=== PATIENT | female | born 1995 | race African-American/Black ===

== ENCOUNTER 2016-09-12 06:39 | Emergency (ER) | payer MEDICAID ==
[2016-09-12 07:34] LABS: BASOPHILS 0.1 % (0-2); EOSINOPHILS 1.4 % (0-7); HEMATOCRIT 38.1 % (36.0-48.0); HEMOGLOBIN 12.4 g/dL (12-16); IMMATURE GRANULOCYTES 0.2 % (0-5); LYMPHOCYTES 18.6 % (15-50); MCH 27.8 pg (26.0-34.0); MCHC 32.5 g/dL (31.0-37.0); MCV 85.4 fL (80.0-100.0); MEAN PLATELET VOLUME 12.2 fL (7.4-10.4); MONOCYTES 5.5 % (2-11); NEUTROPHILS 74.2 % (40-80); PLATELET COUNT 228 10x3/uL (130-400); RBC 4.46 10x6/uL (4.00-5.40); RDW 15.1 % (11.5-14.5); WBC 8.9 10x3/uL (4.8-10.8)
[2016-09-12 07:43] LABS: HCG SERUM NEGATIVE (NEGATIVE)
[2016-09-12 09:20] LABS: ALKALINE PHOSPHATASE 100 U/L (46-116); ALT (SGPT) 20 U/L (10-68); BILIRUBIN - TOTAL 0.33 mg/dL (0.2-1.3); CALC OSMOLALITY 283 mosm/kg (275-300); CALCIUM 9.5 mg/dL (8.5-10.1); CARBON DIOXIDE 24.8 mmol/L (21.0-32.0); CHLORIDE - SERUM 105 mmol/L (98-107); GLUCOSE 110 mg/dL (74-106); MAGNESIUM - SERUM 2.2 mg/dL (1.8-2.4); POTASSIUM - SERUM 3.8 mmol/L (3.5-5.1); PROTEIN - SERUM 8.3 g/dL (6.4-8.2); SODIUM 142 mmol/L (136-145); UREA NITROGEN 13 mg/dL (7-18); eGFR NON AFRICAN AMERICAN 75 mL/min (90-120)
[2016-09-12 09:47] LABS: APPEARANCE CLEAR (CLEAR); BILIRUBIN NEGATIVE (NEGATIVE); COLOR YELLOW (YELLOW); GLUCOSE NEGATIVE (NEGATIVE); KETONE NEGATIVE (NEGATIVE); LEUKOCYTE ESTERASE 1+ (NEGATIVE); NITRITE NEGATIVE (NEGATIVE); PROTEIN TRACE mg/dL (NEGATIVE); UROBILINOGEN NORMAL (NORMAL)
[2016-09-12 09:48] LABS: BACTERIA MANY /hpf (NONE SEEN); EPITHELIAL CELLS 0-5 /hpf (0-5); MUCUS <1+ /lpf (NONE SEEN)
== END 2016-09-12 10:30 | disposition home or self-care (01) ==
LOC: D.ER 06:39
PROVIDERS: Emergency Medicine
DX: R11.10 Vomiting, unspecified (principal); R10.9 Unspecified abdominal pain

== ENCOUNTER 2016-12-04 07:54 | Emergency (ER) | payer MEDICAID | END 2016-12-04 08:45 | disposition home or self-care (01) | LOC: D.ER 07:54 | DX: A64 Unspecified sexually transmitted disease (principal); F17.200 Nicotine dependence, unspecified, uncomplicated ==

== ENCOUNTER 2017-02-10 08:54 | Emergency (ER) | payer MEDICAID ==
[2017-02-10 10:01] LABS: HCG URINE NEGATIVE (NEGATIVE)
[2017-02-10 10:09] LABS: APPEARANCE HAZY (CLEAR); COLOR DK YELLOW (YELLOW)
[2017-02-10 10:10] LABS: BACTERIA FEW /hpf (NONE SEEN); BILIRUBIN NEGATIVE (NEGATIVE); EPITHELIAL CELLS 0-5 /hpf (0-5); GLUCOSE NEGATIVE (NEGATIVE); KETONE MODERATE mg/dL (NEGATIVE); MUCUS >1+ /lpf (NONE SEEN); NITRITE NEGATIVE (NEGATIVE); PROTEIN NEGATIVE (NEGATIVE); SPECIFIC GRAVITY 1.015 (1.005-1.020); WHITE CELLS - URINE OCC /hpf (0-5)
== END 2017-02-10 10:37 | disposition left against medical advice (07) ==
LOC: D.ER 08:54
PROVIDERS: Family Medicine
DX: S20.219A Contusion of unspecified front wall of thorax, initial encounter (principal); Y04.2XXA Assault by strike against or bumped into by another person, initial encounter; Y93.89 Activity, other specified; Y92.029 Unspecified place in mobile home as the place of occurrence of the external cause; L01.00 Impetigo, unspecified

== ENCOUNTER 2017-02-12 07:53 | Emergency (ER) | payer MEDICAID | END 2017-02-12 10:20 | disposition home or self-care (01) | LOC: D.ER 07:53 | DX: R11.10 Vomiting, unspecified (principal); F41.9 Anxiety disorder, unspecified; L01.00 Impetigo, unspecified; F17.200 Nicotine dependence, unspecified, uncomplicated ==

== ENCOUNTER 2017-03-17 04:02 | Emergency (ER) | payer MEDICAID ==
[2017-03-17 04:35] LABS: BASOPHILS 0 % (0-2); EOSINOPHILS 1.3 % (0-7); HEMATOCRIT 35.9 % (36.0-48.0); IMMATURE GRANULOCYTES 0.2 % (0-5); LYMPHOCYTES 23.4 % (15-50); MCH 29.6 pg (26.0-34.0); MCHC 33.4 g/dL (31.0-37.0); MCV 88.4 fL (80.0-100.0); MONOCYTES 11.1 % (2-11); PLATELET COUNT 230 10x3/uL (130-400); RBC 4.06 10x6/uL (4.00-5.40); RDW 14.7 % (11.5-14.5); WBC 6.2 10x3/uL (4.8-10.8)
[2017-03-17 04:43] LABS: CALC OSMOLALITY 275 mosm/kg (275-300); CALCIUM 8.5 mg/dL (8.5-10.1); CARBON DIOXIDE 25.1 mmol/L (21.0-32.0); CHLORIDE - SERUM 103 mmol/L (98-107); CREATININE - SERUM 0.8 mg/dL (0.6-1.3); GLUCOSE 90 mg/dL (74-106); MAGNESIUM - SERUM 1.7 mg/dL (1.8-2.4); POTASSIUM - SERUM 3.4 mmol/L (3.5-5.1); SODIUM 139 mmol/L (136-145); UREA NITROGEN 8 mg/dL (7-18); eGFR NON AFRICAN AMERICAN > 90 mL/min (90-120)
[2017-03-17 04:45] LABS: HCG SERUM POSITIVE (NEGATIVE)
== END 2017-03-17 05:00 | disposition home or self-care (01) ==
LOC: D.ER 04:02
PROVIDERS: Emergency Medicine
DX: R56.9 Unspecified convulsions (principal); Z33.1 Pregnant state, incidental; F17.200 Nicotine dependence, unspecified, uncomplicated

== ENCOUNTER 2017-03-19 04:58 | Emergency (ER) | payer MEDICAID ==
[2017-03-20 11:59] VITALS: BMI 31.9
[2017-03-20] MEDS ORDERED: LEVSIN/ANASP0.125 MG PO (13:57)
[2017-03-20] MEDS ORDERED: PHENERGAN25 M1 PO ×2 (13:59→14:49)
[2017-03-20] MEDS ORDERED: KEFLEX500 MG PO (14:00)
[2017-03-20] MEDS ORDERED: TYLENOL W/CODEI1 TAB PO (14:01)
[2017-03-20] MEDS ORDERED: MOBIC7.5 MG PO (14:03)
[2017-03-20] MEDS ORDERED: BACTRIM DS TABL1 TAB PO (14:04)
[2017-03-20] MEDS ORDERED: ZOFRAN4 MG PO (14:05)
[2017-03-20] MEDS ORDERED: MACROBID100 MG PO (14:07)
[2017-03-20] MEDS ORDERED: TYLENOL PM1 TAB PO ×2 (14:08→14:50)
[2017-03-20] MEDS ORDERED: PROAIR HFA8.5 GM INH (14:10)
[2017-03-20] MEDS ORDERED: KEPPRA500 MG PO ×2 (14:12→14:48)
[2017-03-20] MEDS ORDERED: PRENATAL COMPLE1 TAB PO (14:51)
[2017-03-20] MEDS ORDERED: FOLIC ACID1 MG PO (14:51)
== END 2017-03-19 06:35 | disposition home or self-care (01) ==
LOC: D.ER 04:58
DX: J20.9 Acute bronchitis, unspecified (principal); F17.200 Nicotine dependence, unspecified, uncomplicated

== ENCOUNTER 2017-03-19 19:20 | Emergency (ER) | payer MEDICAID ==
[2017-03-19 23:00] LABS: BASOPHILS 0 % (0-2); EOSINOPHILS 0 % (0-7); HEMATOCRIT 34.3 % (36.0-48.0); HEMOGLOBIN 11.7 g/dL (12-16); IMMATURE GRANULOCYTES 0.1 % (0-5); LYMPHOCYTES 10.1 % (15-50); MCH 29.5 pg (26.0-34.0); MCHC 34.1 g/dL (31.0-37.0); MCV 86.6 fL (80.0-100.0); MEAN PLATELET VOLUME 11.8 fL (7.4-10.4); MONOCYTES 4.9 % (2-11); NEUTROPHILS 84.9 % (40-80); PLATELET COUNT 251 10x3/uL (130-400); RBC 3.96 10x6/uL (4.00-5.40); RDW 14.6 % (11.5-14.5)
[2017-03-19 23:18] LABS: ALKALINE PHOSPHATASE 73 U/L (46-116); ALT (SGPT) 29 U/L (10-68); BILIRUBIN - TOTAL 0.38 mg/dL (0.2-1.3); CALC OSMOLALITY 273 mosm/kg (275-300); CALCIUM 9.1 mg/dL (8.5-10.1); CARBON DIOXIDE 20.3 mmol/L (21.0-32.0); CHLORIDE - SERUM 104 mmol/L (98-107); CREATININE - SERUM 0.8 mg/dL (0.6-1.3); GLUCOSE 124 mg/dL (74-106); POTASSIUM - SERUM 3.6 mmol/L (3.5-5.1); PROTEIN - SERUM 8.5 g/dL (6.4-8.2); SODIUM 137 mmol/L (136-145); UREA NITROGEN 11 mg/dL (7-18); eGFR NON AFRICAN AMERICAN > 90 mL/min (90-120)
[2017-03-19 23:40] LABS: HCG - QUANTITATIVE (MATERNAL) 2713 mIU/mL
[2017-03-20] LABS: APPEARANCE CLEAR (CLEAR); COLOR YELLOW (YELLOW); GLUCOSE NEGATIVE (NEGATIVE); NITRITE NEGATIVE (NEGATIVE); PROTEIN NEGATIVE (NEGATIVE); SPECIFIC GRAVITY 1.015 (1.005-1.020)
[2017-03-20 00:01] LABS: BILIRUBIN NEGATIVE (NEGATIVE); KETONE MODERATE mg/dL (NEGATIVE); UROBILINOGEN NORMAL (NORMAL)
[2017-03-20 11:59] VITALS: BMI 31.9
[2017-03-20] MEDS ORDERED: LEVSIN/ANASP0.125 MG PO (13:57)
[2017-03-20] MEDS ORDERED: PHENERGAN25 M1 PO ×2 (13:59→14:49)
[2017-03-20] MEDS ORDERED: KEFLEX500 MG PO (14:00)
[2017-03-20] MEDS ORDERED: TYLENOL W/CODEI1 TAB PO (14:01)
[2017-03-20] MEDS ORDERED: MOBIC7.5 MG PO (14:03)
[2017-03-20] MEDS ORDERED: BACTRIM DS TABL1 TAB PO (14:04)
[2017-03-20] MEDS ORDERED: ZOFRAN4 MG PO (14:05)
[2017-03-20] MEDS ORDERED: MACROBID100 MG PO (14:07)
[2017-03-20] MEDS ORDERED: TYLENOL PM1 TAB PO ×2 (14:08→14:50)
[2017-03-20] MEDS ORDERED: PROAIR HFA8.5 GM INH (14:10)
[2017-03-20] MEDS ORDERED: KEPPRA500 MG PO ×2 (14:12→14:48)
[2017-03-20] MEDS ORDERED: PRENATAL COMPLE1 TAB PO (14:51)
[2017-03-20] MEDS ORDERED: FOLIC ACID1 MG PO (14:51)
== END 2017-03-20 01:40 | disposition home or self-care (01) ==
LOC: D.ER 19:20
PROVIDERS: Physician Assistant
DX: K52.9 Noninfective gastroenteritis and colitis, unspecified (principal); R10.31 Right lower quadrant pain; R10.32 Left lower quadrant pain

== ENCOUNTER 2017-03-20 08:12 | Observation (INO) | payer MEDICAID ==
[~2017-03-20] VITALS: Ht 160 cm; Wt 81.6 kg
--- NOTE | ~2017-03-20 | SS ---
PATIENT:EARNESTINE GREGG :89 MEDICAL RECORD: [id number] DISCHARGE SUMMARY ADMISSION DATE: 03/20/17 DISCHARGE DATE: 03/20/17 Admission to the Emergency Room 03/20/2017 and labor and delivery same day. This patient is a 21-year-old female at approximately 5 weeks' gestational age, who presented to the Emergency Room with nausea and vomiting. She had been discharged home at 1:30 a.m. from the Emergency Room same day and presented again at 8:00 a.m. The patient also has a seizure disorder. Her workup included CBC, UA revealing large ketones and also positive for THC. She was treated with IV fluids, vital signs remained stable. She was afebrile. UA revealed large ketones. She was treated also with GI cocktail and observation on labor and delivery. The patient's symptoms improved and she was discharged home at approximately 8:00 p.m. on medications including cephalexin, promethazine, levetiracetam, ProAir inhaler, vitamins, folic acid. To return p.r.n. on exacerbation of her symptoms and to seek care. TRANSINT:[id number] Voice Confirmation ID: [id number] DOCUMENT ID: [id number] GENARO JACOBO MD CC: [id number] DICTATION DATE: 04/20/171651 GROOVING MACHINE OPERATOR: 04/21/17 1058 DIS IN 03/20/17 [facility] [address] [place] [address]
[2017-03-20 08:37] LABS: APPEARANCE HAZY (CLEAR); BILIRUBIN NEGATIVE (NEGATIVE); COLOR YELLOW (YELLOW); GLUCOSE NEGATIVE (NEGATIVE); KETONE LARGE mg/dL (NEGATIVE); NITRITE NEGATIVE (NEGATIVE); PROTEIN TRACE mg/dL (NEGATIVE); SPECIFIC GRAVITY 1.015 (1.005-1.020); UROBILINOGEN NORMAL (NORMAL)
[2017-03-20 08:38] LABS: WHITE CELLS - URINE 0-5 /hpf (0-5)
[2017-03-20 08:39] LABS: BACTERIA FEW /hpf (NONE SEEN); EPITHELIAL CELLS 25-50 /hpf (0-5)
[2017-03-20 08:45] LABS: UDS - AMPHET NEGATIVE QUAL (NEGATIVE); UDS - BARB NEGATIVE QUAL (NEGATIVE); UDS - BENZO NEGATIVE QUAL (NEGATIVE); UDS - COCAINE NEGATIVE QUAL (NEGATIVE); UDS - OPIATE NEGATIVE QUAL (NEGATIVE); UDS - PCP NEGATIVE QUAL (NEGATIVE); UDS - THC POSITIVE QUAL (NEGATIVE)
[2017-03-20 09:26] LABS: BASOPHILS 0.1 % (0-2); EOSINOPHILS 0 % (0-7); HEMATOCRIT 36.1 % (36.0-48.0); HEMOGLOBIN 12.1 g/dL (12-16); IMMATURE GRANULOCYTES 0.3 % (0-5); LYMPHOCYTES 11.1 % (15-50); MCH 28.9 pg (26.0-34.0); MCHC 33.5 g/dL (31.0-37.0); MCV 86.2 fL (80.0-100.0); MEAN PLATELET VOLUME 11.7 fL (7.4-10.4); MONOCYTES 8.6 % (2-11); NEUTROPHILS 79.9 % (40-80); PLATELET COUNT 291 10x3/uL (130-400); RBC 4.19 10x6/uL (4.00-5.40); RDW 14.9 % (11.5-14.5); WBC 11.8 10x3/uL (4.8-10.8)
[2017-03-20 09:27] LABS: CALC OSMOLALITY 277 mosm/kg (275-300); CALCIUM 9.1 mg/dL (8.5-10.1); CHLORIDE - SERUM 103 mmol/L (98-107); CREATININE - SERUM 0.9 mg/dL (0.6-1.3); GLUCOSE 116 mg/dL (74-106); SODIUM 139 mmol/L (136-145); UREA NITROGEN 10 mg/dL (7-18); eGFR NON AFRICAN AMERICAN 84 mL/min (90-120)
[2017-03-20 09:57] LABS: HCG URINE POSITIVE (NEGATIVE)
--- NOTE | 2017-03-20 11:30 | NUR ---
RECEIVED 21 YR OLD G 2 P1 L0 FROM ER VIA WHEELCHAIR FOR ADMISSION SECONDARY TO N&V X 2 DAYS. ALERT AND ORIENTED. AMBULATED TO BED WITHOUT DIFFICULTY. INITIALLY CALM BUT THEN START GRIMACING AND SLIGHT CRY. ENCOURAGED TO DEEP BREATH AND TALKED THROUGH RELAXATION METHOD. GRIMACING, CRYING STOPPED. EMESIS BAG GIVEN SECONDARY TO NAUSEA. SIDE RAILS UP X 2, CALL LIGHT PLACED IN REACH. FOB IN ROOM. 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 HX OF SEIZURES, NOT CURRENTLY TAKING MEDICATION.
--- NOTE | 2017-03-20 11:34 | NUR ---
QUICK START COMPLETED EXCEPT FOR MEDICATION RECONCILIATION. WAITING ON FOB TO RETURN. VS'S OBTAINED.
--- NOTE | 2017-03-20 11:45 | NUR ---
PT NOTIFIED OF PLANS FOR GI COCTAIL AND EXPLAINED PURPOSE OF MEDICATION TO RELIEVE BURNING SENSATION. VERBALIZED UNDERSTANDING. PER PT MOTHER, PT IS NOT SCHIZOPHRENIC STATED BY PATIENT IN HISTORY. SIDE RAILS UP X 2, CALL LIGHT IN REACH.
--- NOTE | 2017-03-20 11:50 | NUR ---
DR JACOBO NOTIFIED OF PT ARRIVAL TO L&D AND NEW ORDERS OBTAINED. INFORMED MD THAT FOB HAS GONE HOME TO OBTAIN PT MEDICATIONS. TO CALL MD WHEN HOME MEDICATION INFORMATION IS OBTAINED.
--- NOTE | 2017-03-20 11:50 | NUR ---
ADMISSION ASSESSMENT COMPLETED. CASE MANAGEMENT CONSULT SECONDARY TO PATIENT DESIRE TO TALK TO BOOKMOBILE LIBRARIAN ABOUT THE BIBLE TEACHINGS.
[2017-03-20 11:59] VITALS: BP 117/80; Ht 160 cm; Wt 81.6 kg
--- NOTE | 2017-03-20 12:18 | NUR ---
L&D OB HISTORY COMPLETED. QUESTIONABLE G 2 P1 L0. UNSURE LAST BETWEEN 6-7 MONTHS PER PATIENT.
--- NOTE | 2017-03-20 12:40 | NUR ---
C/O INCREASED ABDOMINAL BURNING CRYING, THREE EPISODE OFF VOMITING CLEAR YELLOW FLUID SINCE ARRIVAL. VOIDED 100 DARK YELLOW URINE X 1. ON WAY OUT OF ROOM PT STATES HER HEAD WAS HURTING TOO. SAYS SHE HAD A SEIZURE IN ER THE MORNING AND HIT HER HEAD ON THE FLOOR. FAMILY MEMBERS IN ROOM CONCURRED WITH PT. SHE IS WORRIED HER HEAD WAS NOT EVALUATED. PER ER REPORT PT RECEIVED NORCO FOR C/O HEAD PAIN. DR JACOBO NOTIFIED OF ABOVE. ORDERS RECEIVED FOR GI COCKTAIL. ALSO REQUESTED UDS IF NOT DONE ALREADY.
--- NOTE | 2017-03-20 12:50 | NUR ---
IV RESTARTED IN RIGHT HAND WITH 20 G CATH WITHOUT DIFFICULTY. 1000 ML NS WITH 40 MILLIEQUIVALANTS POTASSIUM CHLORIDE PLACED ON ALARIS PUMP AT 125 ML/HR. GI COCTAIL GIVEN. STATES "I DON'T FEEL ANYMORE BURNING" AFTER SWALLOWING MEDICATION. EYES CLOSED AND CALM DEMENOR DURING IV START. SIDE RAILS UP X 2. VISITOR X 1 IN ROOM.
--- NOTE | 2017-03-20 12:50 | NUR ---
TO ROOM NO LONGER CRYING OR MOANING. SITTING UP IN BED WATCHING TV. C/O BURNING WHEN SALINE LOCK FLUSHED IN LEFT ARE. WILL RESTART IV BEFORE STARTING POTASSIUM CHLORIDE IV SOLUTION.
--- NOTE | 2017-03-20 13:36 | NUR ---
SOLA RETURNED WITH PATIENT MEDICATIONS. HE STATES "I'M BIPOLAR SO DON'T MIND ME IF I AM UP AND WALKING IN ROOM, IN AND OUT OF DOOR. SHE'S AND UPSET WITH ME NOW BECAUSE I TOOK TOO LONG."
--- NOTE | 2017-03-20 13:50 | NUR ---
TALKING ON PHONE. SAYS SHE WASNT HAVING ANY PAIN UNTIL HER FATHER WOKE HER UP. NOW WITH 5/10 CRAMPING PAIN, SAYS THE BURNING IS "A LITTLE BETTER THAN IT WAS".
[2017-03-20] MEDS ORDERED: LEVSIN/ANASP0.125 MG PO (13:57)
[2017-03-20] MEDS ORDERED: PHENERGAN25 M1 PO ×2 (13:59→14:49)
[2017-03-20] MEDS ORDERED: KEFLEX500 MG PO (14:00)
[2017-03-20] MEDS ORDERED: TYLENOL W/CODEI1 TAB PO (14:01)
[2017-03-20] MEDS ORDERED: MOBIC7.5 MG PO (14:03)
[2017-03-20] MEDS ORDERED: BACTRIM DS TABL1 TAB PO (14:04)
[2017-03-20] MEDS ORDERED: ZOFRAN4 MG PO (14:05)
[2017-03-20] MEDS ORDERED: MACROBID100 MG PO (14:07)
[2017-03-20] MEDS ORDERED: TYLENOL PM1 TAB PO ×2 (14:08→14:50)
[2017-03-20] MEDS ORDERED: PROAIR HFA8.5 GM INH (14:10)
[2017-03-20] MEDS ORDERED: KEPPRA500 MG PO ×2 (14:12→14:48)
--- NOTE | 2017-03-20 14:24 | NUR ---
ALARIS PUMP BEEPING 'OCCLUDED.' IV SITE ASSESSED. PUMP RESTARTED. PT REPORTS NEED TO 'USE THE BATHROOM.' PT UP AND AMB TO BATHROOM PER SELF WITH STEADY GAIT NOTED. VOIDS 100ML CLEAR YELLOW URINE. PT REPORTS AND SHOWS THIS RN TOILET PAPER WITH 2 PEA SIZE LIGHT PINK SPOTS OF BLOOD. PT HAD IN AND OUT CATH DONE EARLIER TODAY IN ER, ADV PT THIS CAN BE NORMAL WITH THAT PROCEDURE. PT VERBALIZED UNDERSTANDING. PT TALKATIVE AND CHEERFUL AT THIS TIME. OFFERS NO C/O OR FURTHER NEEDS.
--- NOTE | 2017-03-20 14:28 | NUR ---
PATIENT SAYS SHE IS FEELING A LOT BETTER. 07/03 PAIN NOW. SMILING. TALKING. REPORT CALLED TO DR JACOBO AND REPORT GIVEN ON ABOVE ALONG WITH LIST OF MEDICATIONS THAT WERE BROUGHT FROM HOME. NEW ORDERS RECEIVED. PLAN DC HOME AFTER IV. WILL GIVE CLEAR LIQUIDS NOW AND ADVANCE TOLERATION.
--- NOTE | 2017-03-20 14:38 | NUR ---
SITTING UP IN BED TALKING ON PHONE AND TO FOB. JELLO AND SANDWICH TRAY GIVEN. STATES "OH GOOD MY STOMACH IS GROWLING, FIRST TIME IN AWHILE". SMILING, VERY TALKATIVE. REVIEWED MEDICATION TO TAKE AT HOME TO CALL IF ANYTHING IS NEEDED.
[2017-03-20] MEDS ORDERED: PRENATAL COMPLE1 TAB PO (14:51)
[2017-03-20] MEDS ORDERED: FOLIC ACID1 MG PO (14:51)
--- NOTE | 2017-03-20 15:05 | NUR ---
AMBULATING IN ROOM. SMILING, REQUESTED MORE JELLO. ATE 1/2 SANDWICH. STATES "I'M GETTING READY TO EAT THE REST". SALINE LOCK REMOVED FROM LEFT INNER FA EARLIER WITH TIP INTACT. NO ADDITIONAL REQUESTS.
--- NOTE | 2017-03-20 16:52 | NUR ---
LAYING ON LEFT SIDE. EYES CLOSED, RESPIRATIONS EVEN. SIDERAILS UP X 2, CALL LIGHT IN REACH. NO CURRENT VISITORS.
--- NOTE | 2017-03-20 17:13 | NUR ---
PIV BEEPING "OCCLUDED." IV SITE ASSESSED, NO EDEMA NOTED TO SITE. PT REPORTS NO BURNING OR PAIN AT IV SITE. PUMP RESTARTED. ADV PT PIV IS POSITIONAL AND TO TRY AND KEEP WRIST STRAIGHT. PT VERBALIZED UNDERSTANDING. DENIES FURTHER NEEDS.
--- NOTE | 2017-03-20 17:25 | NUR ---
PT REQUESTS "AIR" TO BE TURNED ON. SHOWED S.O. WHERE THE THERMOSTAT IS IN THE ROOM AND TURNED AIR DOWN. MEAL TRAY SERVED TO PT. PT DENIES FURTHER NEEDS.
--- NOTE | 2017-03-20 18:21 | NUR ---
AMBULATING IN ROOM. VOIDING WITHOUT DIFFICULTY STATES "I WAS ABLE TO GO MORE THAN I HAVE BEEN IN TWO DAYS" "I DON'T HAVE ANYMORE PAIN. I FEEL A LOT BETTER. I'M GOING TO EAT SOME MORE". REGULAR DIET AT BEDSIDE. DISCUSSED RELIEF MEASURES FOR REFLUX/HEART BURN, DISCUSSED N&V IN FIRST TRIMESTER AND RELIEF MEASURES. DISCUSSED MEDICATIONS TO CONTINUE AT HOME. VERBALIZED UNDERSTANDING. ENCOURAGED SMALL FREQUENT MEALS, INCREASE IN CARBOHYDRATES. HAS NPN APPOINTMENT WITH DR JACOBO ON APR 11. FOB IN ROOM. NO REQUESTS AT THIS TIME.
[2017-03-20 19:11] VITALS: BP 122/71
--- NOTE | 2017-03-20 19:11 | NUR ---
PT. WALKING ABOUT IN ROOM TALKING ON CELL PHONE AND ALSO ROOM PHONE. IV LOCATED IN RT HAND AREA. WITH PT. HOLDING PHONE TO EAT WITH RT. HAND, IV ALARMING OFTEN. INFORMED PT. THAT SHE NEEDED TO TRY AND KEEP RT. HAND STRAIGHT. PT. TALKING WITH THIS NURSE AND ALSO HOLDING TWO OTHER CONVERSATIONS ON PHONE AND CELL PHONE. PT. RELATES THAT SHE FEELS "GOOD" WITHOUT NAUSEA. IV CONTINUES TO INFUSE WITHOUT REDNESS NOR EDEMA AT IV SITE. PT. RELATES THAT SHE HAS DRANK WATER PITCHER FULL OF WATER AND ONE HALF AGAIN, DRANK SPRITE AND TEA. LIFTS COVER FROM MEAL TRAY AND STATES THAT SHE ATE QUITE A LOT OF HER SUPPER. APPROX. 70% OF MEAL CONSUMED. VITAL SIGNS OBTAINED. AWAKE AND ORIENTED. DOES NOT CONCLUDE CONVERSATIONS ON PHONE WHILE THIS NURSE IN ROOM. REPORTING TO CONSTITUTION PARTY ON PHONE THAT SHE IS BEING DISCHARGED.
--- NOTE | 2017-03-20 20:00 | NUR ---
IV COMPLETED AND DISCONTINUED WITH INTACT CATH. TIP NOTED. PT. CHEERFUL. MALE WITH PT. PT. REQUESTING BLACK STICKY TABS FOR EKG BE REMOVED AND SAME DONE.
--- NOTE | 2017-03-20 20:05 | NUR ---
WRITTEN AND VERBAL DISCHARGE INSTRUCTIONS GIVEN TO PT. AND PT. STATED UNDERSTANDING TO ALL. PT. RELATES THAT NURSE ABRIL ON DAYS EXPLAINED EVERYTHING TO HER AND SHE UNDERSTOODS. UP TO DRESS FOR DISCHARGE.
--- NOTE | 2017-03-20 20:15 | NUR ---
PT. REQUESTED WHEELCHAIR FOR DISCHARGE. PT. LEAVES ROOM WITH FULL PATIENT BELONGING BAG. HOSPITAL GOWN NOTED IN TOP OF BAG. TO PRIVATE CAR AND MALE WITH PATIENT DRIVING. REENFORCED THAT PT. WAS TO TAKE HER SEIZURE MED DIRECTED PER MD. PT. STATES SHE HAS THE MED WITH HER AND WILL TAKE DIRECTED.
== END 2017-03-20 20:15 | disposition home or self-care (01) ==
LOC: D.ER 08:12 → OBSVTIME 10:59 → D.LD 10:59
PROVIDERS: Family Medicine; ADMIT Obstetrics & Gynecology
DX: O99.321 Drug use complicating pregnancy, first trimester (principal); F12.90 Cannabis use, unspecified, uncomplicated; Z3A.01 Less than 8 weeks gestation of pregnancy; R56.9 Unspecified convulsions

== ENCOUNTER 2017-03-26 06:57 | Emergency (ER) | payer MEDICAID ==
[~2017-03-26 06:57] MED LIST: BACTRIM DS TABL1 TAB PO; FOLIC ACID1 MG PO; KEFLEX500 MG PO; KEPPRA500 MG PO; LEVSIN/ANASP0.125 MG PO; MACROBID100 MG PO; MOBIC7.5 MG PO; PHENERGAN25 M1 PO; PRENATAL COMPLE1 TAB PO; PROAIR HFA8.5 GM INH; TYLENOL PM1 TAB PO; TYLENOL W/CODEI1 TAB PO; ZOFRAN4 MG PO
== END 2017-03-26 07:40 | disposition home or self-care (01) ==
LOC: D.ER 06:57
DX: O26.891 Other specified pregnancy related conditions, first trimester (principal); Z3A.01 Less than 8 weeks gestation of pregnancy; R10.30 Lower abdominal pain, unspecified; W06.XXXA Fall from bed, initial encounter; Y93.89 Activity, other specified; Y92.013 Bedroom of single-family (private) house as the place of occurrence of the external cause; Y99.9 Unspecified external cause status

== ENCOUNTER 2019-02-12 12:52 | Emergency (ER) | payer MEDICAID ==
[~2019-02-12] VITALS: Ht 160 cm; Wt 86.8 kg
[2019-02-12 12:57] VITALS: BP 104/66; Ht 160 cm; Wt 86.8 kg
[2019-02-12] MEDS ORDERED: HYDROCODON-ACE1 EAC7 PO (13:38)
== END 2019-02-12 13:57 | disposition home or self-care (01) ==
LOC: D.ER 12:52
DX: O26.892 Other specified pregnancy related conditions, second trimester (principal); S83.412A Sprain of medial collateral ligament of left knee, initial encounter

== ENCOUNTER → 2019-03-16 12:45 | Outpatient (CLI) | payer MEDICAID ==
[2019-02-12 12:57] VITALS: BMI 33.9
[~2019-03-16 12:45] MED LIST changes: +HYDROCODON-ACE1 EAC7 PO
[2019-03-16 13:07] LABS: APPEARANCE CLEAR (CLEAR); BILIRUBIN NEGATIVE (NEGATIVE); COLOR YELLOW (YELLOW); GLUCOSE NEGATIVE (NEGATIVE); KETONE NEGATIVE (NEGATIVE); NITRITE NEGATIVE (NEGATIVE); PROTEIN NEGATIVE (NEGATIVE); UROBILINOGEN NORMAL (NORMAL)
[2019-03-16 13:16] LABS: UDS - AMPHET NEGATIVE QUAL (NEGATIVE); UDS - BARB NEGATIVE QUAL (NEGATIVE); UDS - BENZO NEGATIVE QUAL (NEGATIVE); UDS - COCAINE NEGATIVE QUAL (NEGATIVE); UDS - OPIATE NEGATIVE QUAL (NEGATIVE); UDS - PCP NEGATIVE QUAL (NEGATIVE); UDS - THC NEGATIVE QUAL (NEGATIVE)
== END | disposition home or self-care (01) ==
LOC: D.LDO 12:45
PROVIDERS: ATTEND Student in an Organized Health Care Education/Training Program
DX: O26.899 Other specified pregnancy related conditions, unspecified trimester (principal); Z3A.00 Weeks of gestation of pregnancy not specified; M25.562 Pain in left knee

== ENCOUNTER 2019-03-22 18:37 | Outpatient (CLI) | payer SELFPAY ==
[2019-02-12 12:57] VITALS: BMI 33.9
[2019-03-22 21:10] LABS: BASOPHILS 0 % (0-2); EOSINOPHILS 0.9 % (0-7); HEMATOCRIT 26.3 % (36.0-48.0); HEMOGLOBIN 8.6 g/dL (12-16); IMMATURE GRANULOCYTES 0.5 % (0-5); LYMPHOCYTES 20.8 % (15-50); MCH 28.7 pg (26.0-34.0); MCHC 32.7 g/dL (31.0-37.0); MCV 87.7 fL (80.0-100.0); MEAN PLATELET VOLUME 11.2 fL (7.4-10.4); MONOCYTES 14.2 % (2-11); NEUTROPHILS 63.6 % (40-80); WBC 4.2 10x3/uL (4.8-10.8)
[2019-03-22 21:10] LABS: APPEARANCE CLEAR (CLEAR); BILIRUBIN NEGATIVE (NEGATIVE); COLOR YELLOW (YELLOW); GLUCOSE NEGATIVE (NEGATIVE); KETONE NEGATIVE (NEGATIVE); NITRITE NEGATIVE (NEGATIVE); PROTEIN NEGATIVE (NEGATIVE); UROBILINOGEN NORMAL (NORMAL)
[2019-03-22 21:11] LABS: PLATELET COUNT 136 10x3/uL (130-400)
[2019-03-22 21:17] LABS: INR 1.08 (0.85-1.17); PROTIME 13.5 SECONDS (11.6-15.0)
[2019-03-22 21:22] LABS: UDS - AMPHET NEGATIVE QUAL (NEGATIVE); UDS - BARB NEGATIVE QUAL (NEGATIVE); UDS - BENZO NEGATIVE QUAL (NEGATIVE); UDS - COCAINE NEGATIVE QUAL (NEGATIVE); UDS - OPIATE NEGATIVE QUAL (NEGATIVE); UDS - PCP NEGATIVE QUAL (NEGATIVE); UDS - THC NEGATIVE QUAL (NEGATIVE)
== END 2019-03-23 00:30 ==
LOC: D.LDO 18:37 → D.LD 23:51 → D.LDO 03-23 00:30
PROVIDERS: ATTEND Obstetrics & Gynecology
DX: O26.899 Other specified pregnancy related conditions, unspecified trimester (principal); Z3A.00 Weeks of gestation of pregnancy not specified; H54.7 Unspecified visual loss

== ENCOUNTER 2020-02-13 04:17 | Emergency (ER) | payer MEDICAID ==
[~2020-02-13] VITALS: Ht 160 cm; Wt 80.5 kg
[2020-02-13 04:19] VITALS: Ht 160 cm; Wt 80.5 kg
[2020-02-13 05:05] LABS: BASOPHILS 0.1 % (0-2); EOSINOPHILS 0 % (0-7); HEMATOCRIT 37.6 % (36.0-48.0); HEMOGLOBIN 12.6 g/dL (12-16); IMMATURE GRANULOCYTES 0.4 % (0-5); LYMPHOCYTES 6.3 % (15-50); MCH 29.2 pg (26.0-34.0); MCHC 33.5 g/dL (31.0-37.0); MEAN PLATELET VOLUME 11.7 fL (7.4-10.4); NEUTROPHILS 90.2 % (40-80); RBC 4.32 10x6/uL (4.00-5.40); RDW 14.4 % (11.5-14.5); WBC 10.6 10x3/uL (4.8-10.8)
[2020-02-13] MEDS ORDERED: PHENERGAN25 M1 PO (05:19)
[2020-02-13 05:28] LABS: HCG URINE NEGATIVE (NEGATIVE)
[2020-02-13 05:28] LABS: PLATELET COUNT 212 10x3/uL (130-400)
[2020-02-13 05:30] LABS: CALC OSMOLALITY 278 mosm/kg (275-300); CALCIUM 9.6 mg/dL (8.5-10.1); CARBON DIOXIDE 19.7 mmol/L (21.0-32.0); CHLORIDE - SERUM 104 mmol/L (98-107); CREATININE - SERUM 0.7 mg/dL (0.6-1.3); GLUCOSE 129 mg/dL (74-106); POTASSIUM - SERUM 3.7 mmol/L (3.5-5.1); SODIUM 139 mmol/L (136-145); UREA NITROGEN 9 mg/dL (7-18); eGFR NON AFRICAN AMERICAN > 90 mL/min (90-120)
[2020-02-13 05:36] LABS: BILIRUBIN NEGATIVE (NEGATIVE); KETONE NEGATIVE (NEGATIVE); NITRITE NEGATIVE (NEGATIVE); UROBILINOGEN NORMAL mg/dL (< 2)
[2020-02-13 05:37] LABS: BACTERIA FEW HPF (NONE SEEN); EPITHELIAL CELLS 0-5 /hpf (0-5); WHITE CELLS - URINE 0-5 HPF (0-4)
[2020-02-13 05:38] LABS: UDS - AMPHET NEGATIVE QUAL (NEGATIVE); UDS - BARB NEGATIVE QUAL (NEGATIVE); UDS - BENZO NEGATIVE QUAL (NEGATIVE); UDS - COCAINE NEGATIVE QUAL (NEGATIVE); UDS - OPIATE NEGATIVE QUAL (NEGATIVE); UDS - PCP NEGATIVE QUAL (NEGATIVE); UDS - THC POSITIVE QUAL (NEGATIVE)
[2020-02-13 05:46] LABS: ALBUMIN 4.1 g/dL (3.4-5.0); ALKALINE PHOSPHATASE 86 U/L (30-120); ALT (SGPT) 16 U/L (10-68); BILIRUBIN - TOTAL 0.52 mg/dL (0.2-1.3); LIPASE 67 U/L (73-393); PROTEIN - SERUM 8.2 g/dL (6.4-8.2)
[2020-02-13 05:51] LABS: C-REACTIVE PROTEIN 0.2 mg/dL (0.0-0.9)
[2020-02-13] MEDS ORDERED: KEPPRA500 MG PO (05:52)
[2020-02-13 06:39] VITALS: BP 126/79
== END 2020-02-13 06:40 | disposition home or self-care (01) ==
LOC: D.ER 04:17
PROVIDERS: Family Medicine
DX: R10.11 Right upper quadrant pain (principal); R56.9 Unspecified convulsions

== ENCOUNTER 2020-08-27 21:27 | Emergency (ER) | payer MEDICAID ==
[~2020-08-27] VITALS: Ht 160 cm; Wt 80.5 kg
[2020-08-27 21:46] VITALS: Ht 160 cm; Wt 80.5 kg
[2020-08-27 22:30] LABS: BASOPHILS 0 % (0-2); EOSINOPHILS 0 % (0-7); HEMATOCRIT 38.5 % (36.0-48.0); HEMOGLOBIN 12.8 g/dL (12-16); IMMATURE GRANULOCYTES 0.3 % (0-5); LYMPHOCYTE ABS# 0.65 10x3/uL (1.18-3.74); LYMPHOCYTES 6.5 % (15-50); MCH 28.8 pg (26.0-34.0); MCHC 33.2 g/dL (31.0-37.0); MCV 86.5 fL (80.0-100.0); MEAN PLATELET VOLUME 12.8 fL (7.4-10.4); MONOCYTES 0.7 % (2-11); NEUTROPHIL ABS# 9.32 10x3/uL (1.56-6.13); NEUTROPHILS 92.5 % (40-80); PLATELET COUNT 227 10x3/uL (130-400); RBC 4.45 10x6/uL (4.00-5.40); RDW 14.5 % (11.5-14.5); WBC 10.1 10x3/uL (4.8-10.8)
[2020-08-27] MEDS ORDERED: DICLOFENAC SODI50 MG PO (22:32)
[2020-08-27 23:13] LABS: CALC OSMOLALITY 284 mosm/kg (275-300); CALCIUM 9.6 mg/dL (8.5-10.1); CARBON DIOXIDE 25.6 mmol/L (21.0-32.0); CHLORIDE - SERUM 104 mmol/L (98-107); CREATININE - SERUM 0.9 mg/dL (0.6-1.3); GLUCOSE 113 mg/dL (74-106); POTASSIUM - SERUM 3.6 mmol/L (3.5-5.1); SODIUM 143 mmol/L (136-145); UREA NITROGEN 9 mg/dL (7-18); eGFR NON AFRICAN AMERICAN 81 mL/min (90-120)
[2020-08-27 23:23] LABS: ALBUMIN 4.3 g/dL (3.4-5.0); ALKALINE PHOSPHATASE 97 U/L (30-120); ALT (SGPT) 24 U/L (10-68); AMYLASE - SERUM 83 U/L (25-115); BILIRUBIN - TOTAL 0.62 mg/dL (0.2-1.3); LIPASE 65 U/L (73-393); PROTEIN - SERUM 8.6 g/dL (6.4-8.2); TROPONIN-I < 0.017 ng/mL (0.000-0.060)
[2020-08-28 00:49] VITALS: BP 134/74
== END 2020-08-28 00:49 | disposition home or self-care (01) ==
LOC: D.ER 21:27
PROVIDERS: Family Medicine
DX: R10.11 Right upper quadrant pain (principal)

== ENCOUNTER 2020-08-28 11:07 | Emergency (ER) | payer MEDICAID ==
[~2020-08-28] VITALS: Ht 160 cm; Wt 79.1 kg
[~2020-08-28 11:07] MED LIST changes: +DICLOFENAC SODI50 MG PO
[2020-08-28 11:13] VITALS: Ht 160 cm; Wt 79.1 kg
[2020-08-28 12:02] LABS: BASOPHILS 0 % (0-2); CALC OSMOLALITY 284 mosm/kg (275-300); CALCIUM 10.1 mg/dL (8.5-10.1); CARBON DIOXIDE 26.7 mmol/L (21.0-32.0); CHLORIDE - SERUM 104 mmol/L (98-107); CREATININE - SERUM 0.9 mg/dL (0.6-1.3); EOSINOPHILS 0 % (0-7); GLUCOSE 112 mg/dL (74-106); HEMATOCRIT 37.5 % (36.0-48.0); HEMOGLOBIN 12.5 g/dL (12-16); IMMATURE GRANULOCYTES 0.2 % (0-5); LYMPHOCYTE ABS# 1.02 10x3/uL (1.18-3.74); MCHC 33.3 g/dL (31.0-37.0); MEAN PLATELET VOLUME 12.3 fL (7.4-10.4); MONOCYTES 4.5 % (2-11); NEUTROPHIL ABS# 7.07 10x3/uL (1.56-6.13); NEUTROPHILS 83.3 % (40-80); PLATELET COUNT 209 10x3/uL (130-400); POTASSIUM - SERUM 3.4 mmol/L (3.5-5.1); RBC 4.31 10x6/uL (4.00-5.40); RDW 14.4 % (11.5-14.5); SODIUM 143 mmol/L (136-145); UREA NITROGEN 11 mg/dL (7-18); WBC 8.5 10x3/uL (4.8-10.8); eGFR NON AFRICAN AMERICAN 81 mL/min (90-120)
[2020-08-28 12:09] LABS: ALBUMIN 4.1 g/dL (3.4-5.0); ALKALINE PHOSPHATASE 90 U/L (30-120); ALT (SGPT) 21 U/L (10-68); BILIRUBIN - TOTAL 0.46 mg/dL (0.2-1.3); LIPASE 124 U/L (73-393); PROTEIN - SERUM 7.9 g/dL (6.4-8.2)
[2020-08-28 13:07] VITALS: BP 122/62
== END 2020-08-28 13:21 | disposition home or self-care (01) ==
LOC: D.ER 11:07
PROVIDERS: Emergency Medicine
DX: K80.20 Calculus of gallbladder without cholecystitis without obstruction (principal); R10.11 Right upper quadrant pain

== ENCOUNTER 2020-10-11 19:23 | Emergency (ER) | payer MEDICAID ==
[~2020-10-11] VITALS: Ht 160 cm; Wt 74.1 kg
[2020-10-11 19:25] VITALS: BP 139/70; Ht 160 cm; Wt 74.1 kg
[2020-10-11 19:54] LABS: BASOPHILS 0.4 % (0-2); EOSINOPHILS 0 % (0-7); HEMATOCRIT 38.4 % (36.0-48.0); HEMOGLOBIN 12.6 g/dL (12-16); LYMPHOCYTES 7.5 % (15-50); MCH 28.8 pg (26.0-34.0); MCHC 32.8 g/dL (31.0-37.0); MCV 87.9 fL (80.0-100.0); MEAN PLATELET VOLUME 10.4 fL (7.4-10.4); MONOCYTES 1.9 % (2-11); NEUTROPHILS 90.2 % (40-80); PLATELET COUNT 182 10x3/uL (130-400); RBC 4.36 10x6/uL (4.00-5.40); RDW 14.3 % (11.5-14.5); WBC 7.9 10x3/uL (4.8-10.8)
[2020-10-11 19:58] LABS: CALC OSMOLALITY 279 mosm/kg (275-300); CALCIUM 9.4 mg/dL (8.5-10.1); CARBON DIOXIDE 24.9 mmol/L (21.0-32.0); CHLORIDE - SERUM 105 mmol/L (98-107); CREATININE - SERUM 0.9 mg/dL (0.6-1.3); GLUCOSE 132 mg/dL (74-106); POTASSIUM - SERUM 3.7 mmol/L (3.5-5.1); SODIUM 140 mmol/L (136-145); UREA NITROGEN 11 mg/dL (7-18); eGFR NON AFRICAN AMERICAN 81 mL/min (90-120)
[2020-10-11 20:02] LABS: BILIRUBIN NEGATIVE (NEGATIVE); KETONE 1+ mg/dL (< 1+); NITRITE NEGATIVE (NEGATIVE); PH 8.5 (5.0-8.0); SQUAMOUS EPITHELIAL 1 HPF (0-4); UROBILINOGEN 2 mg/dL (< 2); WHITE CELLS - URINE 2 HPF (0-4)
[2020-10-11 20:04] LABS: ALBUMIN 4.4 g/dL (3.4-5.0); ALKALINE PHOSPHATASE 96 U/L (30-120); ALT (SGPT) 34 U/L (10-68); AMYLASE - SERUM 104 U/L (25-115); BILIRUBIN - TOTAL 0.59 mg/dL (0.2-1.3); LIPASE 99 U/L (73-393); PROTEIN - SERUM 8.3 g/dL (6.4-8.2)
[2020-10-12 00:24] LABS: HCG URINE NEGATIVE (NEGATIVE)
[2020-10-12 00:31] LABS: UDS - AMPHET NEGATIVE QUAL (NEGATIVE); UDS - BARB NEGATIVE QUAL (NEGATIVE); UDS - BENZO NEGATIVE QUAL (NEGATIVE); UDS - COCAINE NEGATIVE QUAL (NEGATIVE); UDS - OPIATE NEGATIVE QUAL (NEGATIVE); UDS - PCP NEGATIVE QUAL (NEGATIVE); UDS - THC POSITIVE QUAL (NEGATIVE)
[2020-10-12] MEDS ORDERED: PEPCID AC20 MG PO (00:42)
[2020-10-12] MEDS ORDERED: ZOFRAN ODT4 MG/UDTAB PO (00:42)
[2020-10-12] MEDS ORDERED: CIPRO500 MG PO (00:42)
[2020-10-12] MEDS ORDERED: FLAGYL500 MG PO (00:42)
== END 2020-10-12 02:40 | disposition home or self-care (01) ==
LOC: D.ER 19:23
PROVIDERS: Emergency Medicine
DX: R10.9 Unspecified abdominal pain (principal); K80.20 Calculus of gallbladder without cholecystitis without obstruction; R11.10 Vomiting, unspecified

== ENCOUNTER 2020-10-13 12:20 | Inpatient (IN) | payer MEDICAID ==
[~2020-10-13] VITALS: Ht 160 cm; Wt 73.9 kg
[~2020-10-13 12:20] MED LIST changes: +CIPRO500 MG PO; +FLAGYL500 MG PO; +PEPCID AC20 MG PO; +ZOFRAN ODT4 MG/UDTAB PO
[2020-10-13 12:45] LABS: BASOPHILS 0.5 % (0-2); EOSINOPHILS 0.1 % (0-7); HEMATOCRIT 36.6 % (36.0-48.0); HEMOGLOBIN 12.2 g/dL (12-16); LYMPHOCYTES 19.3 % (15-50); MCH 28.8 pg (26.0-34.0); MCHC 33.2 g/dL (31.0-37.0); MCV 86.5 fL (80.0-100.0); MEAN PLATELET VOLUME 9.8 fL (7.4-10.4); MONOCYTES 14.6 % (2-11); NEUTROPHILS 65.5 % (40-80); PLATELET COUNT 187 10x3/uL (130-400); RBC 4.22 10x6/uL (4.00-5.40); RDW 14.1 % (11.5-14.5)
[2020-10-13 12:48] LABS: WBC 4.8 10x3/uL (4.8-10.8)
[2020-10-13 13:15] LABS: CALC OSMOLALITY 277 mosm/kg (275-300); CALCIUM 8.8 mg/dL (8.5-10.1); CARBON DIOXIDE 26.8 mmol/L (21.0-32.0); CHLORIDE - SERUM 101 mmol/L (98-107); CREATININE - SERUM 0.9 mg/dL (0.6-1.3); GLUCOSE 98 mg/dL (74-106); SODIUM 140 mmol/L (136-145); UREA NITROGEN 9 mg/dL (7-18); eGFR NON AFRICAN AMERICAN 81 mL/min (90-120)
[2020-10-13 13:18] LABS: POTASSIUM - SERUM 3.1 mmol/L (3.5-5.1)
[2020-10-13 13:23] LABS: ALBUMIN 3.9 g/dL (3.4-5.0); ALKALINE PHOSPHATASE 73 U/L (30-120); ALT (SGPT) 35 U/L (10-68); AMYLASE - SERUM 99 U/L (25-115); BILIRUBIN - TOTAL 0.63 mg/dL (0.2-1.3); LIPASE 98 U/L (73-393); PROTEIN - SERUM 7.5 g/dL (6.4-8.2)
[2020-10-13 13:26] LABS: TROPONIN-I < 0.017 ng/mL (0.000-0.060)
--- NOTE | 2020-10-13 13:45 | NUR ---
TO CT VIA STRETCHER
[2020-10-13 13:57] LABS: BACTERIA FEW HPF (<MOD); BILIRUBIN NEGATIVE (NEGATIVE); HCG URINE NEGATIVE (NEGATIVE); KETONE NEGATIVE mg/dL (< 1+); NITRITE NEGATIVE (NEGATIVE); PH 7.5 (5.0-8.0); SQUAMOUS EPITHELIAL 2 HPF (0-4); UROBILINOGEN NORMAL mg/dL (< 2); WHITE CELLS - URINE 2 HPF (0-4)
--- NOTE | 2020-10-13 14:07 | NUR ---
RETURNED FROM CT
[2020-10-13 16:15] LABS: APTT 26.3 SECONDS (22.8-39.4); INR 1.28 (0.85-1.17); PROTIME 14.8 SECONDS (11.6-15.0)
[2020-10-13 17:31] VITALS: BP 106/69; BMI 28.9
--- NOTE | 2020-10-13 18:06 | NUR ---
PT ARRIVED VIA WHEELCHAIR FROM ED. IV IN R HAND, CDI. RR EVEN NON LABORED. VITAL SIGNS STABLE. PT STATED SHE HAS HAD A SEIZURE YESTERDAY AND EARLY THIS AM. SEIZURE PRECAUTIONS ARE IN PLACE AT THIS TIME. ALL NEEDS MET AT THIS TIME. CLWR.
[2020-10-14 04:00] VITALS: BP 155/60
[2020-10-14 06:27] LABS: HEMATOCRIT 31.2 % (36.0-48.0); HEMOGLOBIN 10.5 g/dL (12-16); MCH 29.5 pg (26.0-34.0); MCHC 33.7 g/dL (31.0-37.0); MCV 87.5 fL (80.0-100.0); MEAN PLATELET VOLUME 9.9 fL (7.4-10.4); RBC 3.57 10x6/uL (4.00-5.40); RDW 13.9 % (11.5-14.5)
[2020-10-14 06:34] LABS: PLATELET COUNT 145 10x3/uL (130-400); WBC 2.4 10x3/uL (4.8-10.8)
[2020-10-14 06:54] LABS: ALKALINE PHOSPHATASE 56 U/L (30-120); ALT (SGPT) 26 U/L (10-68); BILIRUBIN - TOTAL 0.33 mg/dL (0.2-1.3); CALC OSMOLALITY 277 mosm/kg (275-300); CALCIUM 7.9 mg/dL (8.5-10.1); CARBON DIOXIDE 27.8 mmol/L (21.0-32.0); CHLORIDE - SERUM 107 mmol/L (98-107); CREATININE - SERUM 0.8 mg/dL (0.6-1.3); GLUCOSE 81 mg/dL (74-106); POTASSIUM - SERUM 3.4 mmol/L (3.5-5.1); PROTEIN - SERUM 5.9 g/dL (6.4-8.2); SODIUM 141 mmol/L (136-145); UREA NITROGEN 8 mg/dL (7-18); eGFR NON AFRICAN AMERICAN > 90 mL/min (90-120)
--- NOTE | 2020-10-14 08:31 | NUR ---
AAOX4 UPON ENTERING. ADMINSITERED MEDICATION WITH ONE SIP OF WATER. UPRIGHT IN BED. DENIES ANY NEEDS AT THIS TIME. BED IN LOWEST POSITION, BED RAILS X2, CALL LIGHT WITHIN REACH. WILL CONTINUE POC. ASSESSMENT PERFORMED
[2020-10-14 09:23] VITALS: BP 99/72
--- NOTE | 2020-10-14 10:00 | NUR ---
HUNG BAG 1/4 OF POTASSIUM TO REPLACE PER PROTOCOL. RESTING IN BED. PLACED TELEMETRY BACK ON.
[2020-10-14 12:24] LABS: LYMPHOCYTES 37 % (15-50); MONOCYTES 11 % (2-11); NEUTROPHILS 52 % (40-80); PLATELET ESTIMATE NORMAL; ROULEAUX OCC
[2020-10-14 12:55] VITALS: BP 112/64
--- NOTE | 2020-10-14 13:06 | NUR ---
BAG 3/4 OF POTASSIUM HUNG. PRN MORPHINE FOR PAIN. RESTING COMFORTABLY IN BED. DENIES ANY NEEDS AT THIS TIME. WILL CONTINUE POC.
[2020-10-14 13:31] VITALS: Ht 160 cm; Wt 73.9 kg
--- NOTE | 2020-10-14 14:31 | NUR ---
BAG 4/4 POTASSIUM HUNG. FAMILY AT BEDSIDE. DENIES ANY NEEDS. WILL CONTINUE POC.
--- NOTE | 2020-10-14 16:27 | NUR ---
OUT OF ROOM TO PROCEDURE
[2020-10-14 16:46] VITALS: BP 122/71
--- NOTE | 2020-10-14 18:32 | NUR ---
HUNG FLUIDS. BACK FROM PROCEDURE. RESTING COMFORTABLY. VSS AT THIS TIME. FAMILY AT BEDSIDE. LIQUID DIET AND PROGRESS TOLERATED PER DR. PERES. DENIES ANY NEEDS AT THIS TIME. WILL CONTINUE POC.
--- NOTE | 2020-10-14 18:34 | NUR ---
I have reviewed this patient and I concur with the Shift Assessment completed by the Licensed Practical Nurse today this shift.
--- NOTE | 2020-10-14 18:43 | NUR ---
REQUESTING PAIN MEDICATION, INFORMED THAT IT HAS BEEN SWITHCED FROM MORPHINE TO NORCO AND PHARMACY HAS NOT VERIFIED IT YET. PATIENT IS UNDERSTANDING. FATHER AT BEDSIDE FEEDING PATINET JELLO AND SIPS OF APPLE JUICE. DENIES ANY FURTHER NEEDS AT THIS TIME. WILL CONTINUE POC
[2020-10-14 20:00] VITALS: BP 103/52
[2020-10-15 00:05] VITALS: BP 118/55
[2020-10-15 04:07] VITALS: BP 96/54
--- NOTE | 2020-10-15 04:28 | NUR ---
1999) BEGINNING OF SHIFT WALKING ROUNDS PATIENT STATES BEEN TRYING GET BROTH/JELLO ALL EVENING. EMPTY JELLO AND APPLE JUICE CONTAINERS ON BEDSIDE TABLE.BROUGHT HOT BROTH APPLE CRANBERRY JUICE NORCO 5 ONE PO FOR PAIN PER REQUEST STATES WOULD YOU NOT HAVE BROUGHT ME PAIN ME IF I DIDN'T ASK REINFORCED PAIN MED IS ORDERED NEEDED WILL NOT BRING LIKE SCHEDULED MEDS.LEFT ROOM LITE ON STATES I NEED TO GO TO BATHROOM STATES I DON'T NEED YOU NURSES
[2020-10-15 05:58] LABS: BASOPHILS 0.3 % (0-2); EOSINOPHILS 0 % (0-7); HEMATOCRIT 32.3 % (36.0-48.0); HEMOGLOBIN 10.9 g/dL (12-16); LYMPHOCYTES 15.3 % (15-50); MCH 29.4 pg (26.0-34.0); MCHC 33.8 g/dL (31.0-37.0); MEAN PLATELET VOLUME 9.9 fL (7.4-10.4); MONOCYTES 7.5 % (2-11); NEUTROPHILS 76.9 % (40-80); PLATELET COUNT 152 10x3/uL (130-400); RBC 3.71 10x6/uL (4.00-5.40); RDW 13.9 % (11.5-14.5)
[2020-10-15 06:18] LABS: ALBUMIN 3.1 g/dL (3.4-5.0); ALKALINE PHOSPHATASE 72 U/L (30-120); BILIRUBIN - TOTAL 0.18 mg/dL (0.2-1.3); CALC OSMOLALITY 276 mosm/kg (275-300); CALCIUM 8.2 mg/dL (8.5-10.1); CARBON DIOXIDE 25.5 mmol/L (21.0-32.0); CHLORIDE - SERUM 106 mmol/L (98-107); CREATININE - SERUM 0.7 mg/dL (0.6-1.3); GLUCOSE 99 mg/dL (74-106); PROTEIN - SERUM 6.4 g/dL (6.4-8.2); SODIUM 140 mmol/L (136-145); UREA NITROGEN 7 mg/dL (7-18); eGFR NON AFRICAN AMERICAN > 90 mL/min (90-120)
[2020-10-15 06:23] LABS: ALT (SGPT) 60 U/L (10-68); WBC 3.1 10x3/uL (4.8-10.8)
--- NOTE | 2020-10-15 07:54 | NUR ---
RESTING IN BED WITH EYES CLOSED, EASILY AROUSED TO SPEECH. IV LOCATED TO RIGHT HAND CURRENTLY NS @ 125. NO CURRENT S/S OF DISTRESS AT THIS TIME, DENIES CURRENT NEEDS, WILL CONT TO MONITOR.
[2020-10-15 09:17] VITALS: BP 102/52
[2020-10-15 12:48] VITALS: BP 122/69
[2020-10-15 17:01] VITALS: BP 113/74
[2020-10-15 20:00] VITALS: BP 110/68
--- NOTE | 2020-10-15 20:00 | NUR ---
PT SITTING UP IN BED WITHOUT DISTRESS, AOX4. TALKING ON PHONE. STATES PAIN TO ABD 11/02. GAVE NORCO ORDERED. PT WANTED TO SHOWER AT THIS. ASSISTED PT WITH SHOWER SET UP. COVERED LAP SITES WITH BANDAIDS. CHANGED LINENS. DENIES OTHER NEEDS AT THIS TIME. CL IN REACH
--- NOTE | 2020-10-15 21:00 | NUR ---
PT REFUSING MIDNIGHT VITALS, STATES SHE DOES NOT WANT TO BE WOKEN UP
[2020-10-16 04:00] VITALS: BP 109/72
[2020-10-16 05:48] LABS: HEMATOCRIT 32.1 % (36.0-48.0); HEMOGLOBIN 10.6 g/dL (12-16); MCH 29.1 pg (26.0-34.0); MCV 88.1 fL (80.0-100.0); PLATELET COUNT 129 10x3/uL (130-400); RBC 3.64 10x6/uL (4.00-5.40); RDW 14.3 % (11.5-14.5); WBC 2.5 10x3/uL (4.8-10.8)
[2020-10-16 06:01] LABS: ALBUMIN 2.9 g/dL (3.4-5.0); ALKALINE PHOSPHATASE 67 U/L (30-120); ALT (SGPT) 61 U/L (10-68); BILIRUBIN - TOTAL 0.18 mg/dL (0.2-1.3); CALC OSMOLALITY 279 mosm/kg (275-300); CARBON DIOXIDE 27.7 mmol/L (21.0-32.0); CHLORIDE - SERUM 108 mmol/L (98-107); GLUCOSE 82 mg/dL (74-106); MAGNESIUM - SERUM 1.9 mg/dL (1.8-2.4); POTASSIUM - SERUM 3.5 mmol/L (3.5-5.1); SODIUM 142 mmol/L (136-145); UREA NITROGEN 7 mg/dL (7-18); eGFR NON AFRICAN AMERICAN 81 mL/min (90-120)
[2020-10-16 06:03] LABS: CREATININE - SERUM 0.9 mg/dL (0.6-1.3)
--- NOTE | 2020-10-16 08:00 | NUR ---
RECIEVED BEDSIDE REPORT. BED LOW POSITION, CALL LIGHT IN REACH. IN BED SLEEPING. FREE FROM SIGNS OF DISTRESS. WILL CONTINUE TO MONITOR.
[2020-10-16 08:37] VITALS: BP 124/56
[2020-10-16] MEDS ORDERED: PROTONIX40 MG PO (09:11)
[2020-10-16 12:46] VITALS: BP 105/62
[2020-10-16 14:11] LABS: EOSINOPHILS 1 % (0-7); LYMPHOCYTES 46 % (15-50); MONOCYTES 10 % (2-11); NEUTROPHILS 40 % (40-80); PLATELET ESTIMATE NORMAL
[2020-10-16 16:49] VITALS: BP 105/68
--- NOTE | 2020-10-16 19:45 | NUR ---
PT LYING IN BED WITHOUT DISTRESS, AOX4. DENIES NEEDS AT THIS TIME. CL IN REACH
[2020-10-16 20:59] VITALS: BP 135/82
[2020-10-17 06:33] LABS: ALKALINE PHOSPHATASE 63 U/L (30-120); ALT (SGPT) 53 U/L (10-68); BILIRUBIN - TOTAL 0.21 mg/dL (0.2-1.3); CALC OSMOLALITY 283 mosm/kg (275-300); CALCIUM 8.2 mg/dL (8.5-10.1); CARBON DIOXIDE 29.4 mmol/L (21.0-32.0); CHLORIDE - SERUM 108 mmol/L (98-107); CREATININE - SERUM 0.7 mg/dL (0.6-1.3); GLUCOSE 78 mg/dL (74-106); MAGNESIUM - SERUM 2.1 mg/dL (1.8-2.4); POTASSIUM - SERUM 3.5 mmol/L (3.5-5.1); PROTEIN - SERUM 6.1 g/dL (6.4-8.2); SODIUM 144 mmol/L (136-145); UREA NITROGEN 6 mg/dL (7-18); eGFR NON AFRICAN AMERICAN > 90 mL/min (90-120)
[2020-10-17 06:37] LABS: BASOPHILS 0.4 % (0-2); EOSINOPHILS 2.1 % (0-7); HEMATOCRIT 32.8 % (36.0-48.0); LYMPHOCYTES 63.5 % (15-50); MCH 29.2 pg (26.0-34.0); MCHC 33.5 g/dL (31.0-37.0); MCV 87.1 fL (80.0-100.0); MONOCYTES 11.1 % (2-11); NEUTROPHILS 22.9 % (40-80); PLATELET COUNT 145 10x3/uL (130-400); RBC 3.77 10x6/uL (4.00-5.40); RDW 14.3 % (11.5-14.5); WBC 2.6 10x3/uL (4.8-10.8)
--- NOTE | 2020-10-17 08:04 | NUR ---
PATIENT HAS EXPRESSED CONCERNS. CHARGE NURSE DEMOND HOOKER WENT IN TO TALK WITH PATIENT. NOTIFIED BUNGY JUMP MASTER, AND HALFTONE OPERATOR.
[2020-10-17 09:01] VITALS: BP 116/54
--- NOTE | 2020-10-17 14:04 | NUR ---
DISCHARGE PAPERS COMPLETE. NO IV PRESENT. SPA TECHNICIAN REMOVED. DENIES FURTHER QUESTIONS. GATHERED BELONGINGS. LEFT UNIT AMBULATING WITH NURSE TO ER EXIT TO HOME.
--- NOTE | 2020-10-20 18:33 | MORECARE ---
CASE MANAGEMENT DISCHARGE SUMMARY PATIENT: EARNESTINE GREGG UNIT: [id number] ADM DATE: 10/15/20 AGE: 24 : 89 SEX: F ROOM/BED: D.2206 AUTHOR: SAMANTHA,DOC PHYSICIAN: REFERRING PHYSICIAN: GIOVANY DAY DO DATE OF SERVICE: 10/20/20 Case Management Discharge Planning Summary DCP REVIEW SUMMARY ANTICIPATED D/C DATE: EXPECTED LOS : CASE STATUS: DCP Complete INITIAL REVIEW: 10/13/2020 INITIAL REVIEWER: Violetta Machuca FINAL DISCHARGE DISPOSITION: : FINAL REVIEWER: FINAL REVIEW DATE: DCP [employer] Questions [employer]swers QUESTION: ANSWER : PATIENT: EARNESTINE GREGG ENCOUNTER: [id number] MEDICAL RECORD#: [id number] ADMISSION DATE: 10/15/2020 DISCHARGE DATE: 10/17/2020 ATTENDING MD: GIOVANY WALDEN : AGE: 24 MARITAL STATUS: S DC PLAN ID: [id number] FACILITY: [facility] PRINTED ON: 10/20/20 18:33 CT All edits/amendments must be made on the electronic document DICTATION DATE: 10/20/201832 BOAT OUTFITTING SUPERVISOR: DM 10/20/201832 RPT#: [id number] DC DATE:10/17/20 STATUS: DIS IN [facility] [address] [place] [address] END OF REPORT
== END 2020-10-17 14:06 | disposition home or self-care (01) | DRG 419 ==
LOC: D.ER 12:20 → D.EDHOLD 14:46 → OBSVTIME 14:46 → D.MS 14:46
PROVIDERS: Family Medicine; Surgery; ADMIT Family Medicine; ATTEND Family Medicine
PROC: 0FT44ZZ Resection of Gallbladder, Percutaneous Endoscopic Approach (ICD-10-PCS; principal; 2020-10-14 13:30)
PROC: 0F903ZX Drainage of Liver, Percutaneous Approach, Diagnostic (ICD-10-PCS; 2020-10-14 13:30)
DX: K80.20 Calculus of gallbladder without cholecystitis without obstruction (principal); R10.11 Right upper quadrant pain; E87.6 Hypokalemia; G40.909 Epilepsy, unspecified, not intractable, without status epilepticus